=== PATIENT | female | born 1945 | race Caucasian/White ===

== ENCOUNTER 2025-05-22 13:01 | Outpatient (AMB) | payer OTHER, SELFPAY ==
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
--- OUTSIDE RECORDS SUMMARY | 2025-05-22 13:22 | XMS_ITS | Clinical Summary ---
Author Organization [facility] Address [address] [facility] [address] [place] [phone] Phone Care Team Providers Care Training Program Assistant Name Role Phone Unavailable Primary Care Provider Unavailabl e Social History Tobacco Use Types Packs/Day Years Used Date Smoking Tobacco: Never Assessed Education Answer Date Recorded Are you interested in more education? Not on sydni e 02/14/2023 Are you concerned about learning? Not on file 02/14/2023 No 02/14/2023 No 02/14/2023 Digital Access Answer Date Recorded No 03/17/2023 No 03/17/2023 Reliable internet access at home? Not on file 03/17/2023 Device with a working camera? Not on file Comments Unknown Sex and Gender Information Value Date Recorded Sex Assigned at Not on file Legal Sex Female 12:02 PM EST Gender Identity Not on file Sexual Orientation Not on file Plan of Treatment Not on file Medical Devices Not on file Additional Source Comments The information contained in this document represents components of the legal health record. It is not the complete legal health record.[facility]
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
--- OUTSIDE RECORDS SUMMARY | 2025-05-22 13:22 | XMS_ITS | Clinical Summary ---
Author Organization [facility] Address [address] [place] [address] Care Team Providers Care Bandage Wrapping Machine Operator Name Role Phone Bridger Tran MD Primary Care Provider Unavailab le Allergies Active Allergy Reactions Criticality Noted Date Comments Tape 11/21/2022 Tricyclic Antidepressants 11/21/2022 Medications Medication Sig Dispensed Refills Start Date End Date Status apixaban (ELIQUIS) 5 MG TABS tablet Take by mouth every 12 (twelve) hours. 0 Active aspirin EC 81 MG tablet Take 1 tablet (81 mg total) by mouth daily. 0 Active atorvastatin (LIPITOR) tablet 20 mg Take 1 tablet (20 mg total) by mouth daily. 0 Active furosemide (LASIX) 20 MG tablet Take 1 tablet (20 mg total) by mouth daily. 0 Active gabapentin (NEURONTIN) 400 MG capsule Take 1 capsule (400 mg total) by mouth 3 (three) times a day. 0 Active losartan (COZAAR) tablet 25 mg Take 1 tablet (25 mg total) by mouth daily. 0 Active Mirabegron ER 50 MG TB24 Take by mouth. 0 Active pantoprazole (PROTONIX) 40 MG tablet Take 1 tablet (40 mg total) by mouth every morning on an empty stomach. 0 Active propranolol (INDERAL) 20 MG tablet Take 1 tablet (20 mg total) by mouth 3 (three) times a day. 0 Active simethicone (MYLICON) 80 MG chewable tablet Chew 1 tablet (80 mg total) by mouth every 6 (six) hours as needed for flatulence. 0 Active vitamin D3 (cholecalciferol) 10 MCG (400 UNIT) tablet Take 1 tablet (10 mcg total) by mouth daily. 0 Active Social History Tobacco Use Types Packs/Day Years Used Date Smoking Tobacco: Never Smokeless Tobacco: Never Alcohol Use Standard Drinks/Week Comments Never 0 (1 standard drink = 0.6 oz pur e alcohol) Sex and Gender Information Value Date Recorded Sex Assigned at Not on file Gender Identity Not on file Sexual Orientation Not on file Job Start Date Occupation Industry Not on file Not on file Not on file Last Filed Vital Signs Vital Sign Reading Time Taken Comments Blood Pressure 133/56 11/21/2022 1:07 PM EST Pulse 72 11/21/2022 1:07 PM EST Temperature - - Respiratory Rate - - Oxygen Saturation 94% 11/21/2022 1:07 PM EST Inhaled Oxygen Concentration - - Weight 136.1 kg (300 lb) 11/21/2022 1:07 PM EST Height 165.1 cm (5' 5 ) 11/21/2022 1:07 PM EST Body Mass Index 49.92 11/21/2022 1:07 PM EST Plan of Treatment Health Maintenance Due Date Last Done Comments Hepatitis C Screening 1945 Depression Screening 1957 Preventative Health Evaluation 1963 Shingrix-Zoster Vaccine (1 of 2) 1995 Fall Risk Assessment 2010 Osteoporosis Screening (DEXA Scan) 2010 RSV Adult > 60+ Yrs or (1 - 1-dose 75+ series) 2020 Pneumococcal Vaccine (2 of 2 - PCV) 03/07/2022 03/07/2021, 06/22/2019, 09/08/2006 COVID-19 Vaccine (4 - season) 2024 07/25/2021, 12/08/2020, 11/17/2020 Influenza Vaccine (#1) 2025 , 06/22/2019, 07/12/2018, Additional history exists DTap / Tdap / Td (3 - Td or Tdap) 12/26/2029 12/27/2019, 10/19/2007 Hepatitis B Vaccines Aged Out No long er eligible based on patient's age to complete this topic RSV Ped < 20 months Aged Out No longe r eligible based on patient's age to complete this topic Care Teams Bandage Wrapping Machine Operator Relationship Specialty Start Date End Date Bridger Tran MD PCP - General Internal Medicine 09/23/22
== END 2025-05-22 13:52 | disposition home or self-care (01) ==
LOC: HO.HUSH 13:02
PROVIDERS: PCP Internal Medicine; Visit Provider Nurse Practitioner Family
DX: N39.46 Mixed incontinence (principal); N39.0 Urinary tract infection, site not specified; Z13.9 Encounter for screening, unspecified
CPT/HCPCS: 99204

== ENCOUNTER 2025-05-22 13:01 | Outpatient (REF) | payer OTHER, SELFPAY | END 2025-05-22 13:02 | disposition home or self-care (01) | LOC: HO.LAB 13:01 | PROVIDERS: PCP Internal Medicine; Visit Provider Nurse Practitioner Family | DX: N39.46 Mixed incontinence (principal); N39.0 Urinary tract infection, site not specified; N95.2 Postmenopausal atrophic vaginitis; N32.81 Overactive bladder; R35.1 Nocturia; Z13.89 Encounter for screening for other disorder | CPT/HCPCS: 51798; 81003; 87086; 87088; 87186; 99202 ==